=== PATIENT | female | born 1975 | race Caucasian/White ===

== ENCOUNTER → 2020-05-19 07:23 | Outpatient (CLI) | payer BC, SELFPAY ==
[2020-05-19 08:30] LABS: Add Manual Diff / Slide Review NO; Basophils Absolute Auto 100 /uL (0-100); Basophils Percent Auto 2.2 % (0-2); Eosinophils Absolute Auto 200 /uL (0-450); Eosinophils Percent Auto 4.5 % (2-4); Hematocrit 39.8 % (36-46); Hemoglobin 13.5 g/dL (12.0-16.0); Lymphocytes Absolute Auto 1700 /uL (1100-4500); Lymphocytes Percent Auto 31.7 % (25-40); Mean Corpuscular Hemoglobin 30.5 PG (26-34); Mean Corpuscular Volume 89.8 fL (80-100); Monocytes Absolute Auto 600 /uL (0-900); Monocytes Percent Auto 10.7 % (3-14); Neutrophils Absolute Auto 2700 /uL (1500-7000); Neutrophils Percent Auto 50.9 % (50-75); Platelet Count 320 X10^3/uL (150-400); Red Blood Cell Count 4.44 X10^6/uL (4.0-5.2); Red Cell Distribution Width 12.9 % (11.6-14.8); White Blood Cell Count 5.2 X10^3/uL (4.5-11.0)
[2020-05-19 08:55] LABS: Alanine Aminotransferase 19 IU/L (<35); Albumin 4.2 g/dL (3.5-5.0); Albumin Globulin Ratio 1.4 (1.0-2.8); Alkaline Phosphatase 45 U/L (38-126); Aspartate Aminotransferase 29 IU/L (14-36); BUN Creatinine Ratio 16.1 (6-22); Bilirubin Total 0.4 mg/dL (0.2-1.3); Blood Urea Nitrogen 14 mg/dL (7-17); Calcium 9.3 mg/dL (8.4-10.2); Carbon Dioxide 28 mmol/L (22-32); Chloride 102 mmol/L (98-107); Cholesterol 197 mg/dL (140-199); Estimated Glomerular Filt Rate > 60.0 mL/min (>60); Glucose 90 mg/dL (70-100); HDL Cholesterol 64 mg/dL (40-60); HEMOLYSIS < 15 (0-50); LDL Cholesterol Calculated 121 mg/dL (<100); Potassium 4.6 mmol/L (3.4-5.1); Sodium 135 mmol/L (137-145); Total Protein 7.2 g/dL (6.3-8.2); Triglycerides 62 mg/dL (35-150)
[2020-05-19 09:15] LABS: Vitamin D 25 Hydroxy (D3) 63.5 ng/mL (30.0-100.0)
[2020-05-20 08:36] LABS: SARS CoV19 IgG Negative (Negative)
== END ==
PROVIDERS: PCP Registered Nurse Diabetes Educator; Referring Provider Registered Nurse Diabetes Educator; Visit Provider Registered Nurse Diabetes Educator
DX: Z13.1 Encounter for screening for diabetes mellitus (principal); Z13.220 Encounter for screening for lipoid disorders; E55.9 Vitamin D deficiency, unspecified; Z87.898 Personal history of other specified conditions
CPT/HCPCS: 36415; 80053; 80061; 82306; 84443; 85025; 86769

== ENCOUNTER → 2021-02-27 09:16 | Outpatient (CLI) | payer BC, SELFPAY ==
[2021-02-27 09:44] LABS: Hematocrit 40.4 % (36-46); Hemoglobin 13.8 g/dL (12.0-16.0); Mean Corpuscular HGB Conc 34.2 % (30-36); Mean Corpuscular Hemoglobin 30.7 PG (26-34); Mean Corpuscular Volume 89.6 fL (80-100); Platelet Count 356 X10^3/uL (150-400); Red Blood Cell Count 4.51 X10^6/uL (4.0-5.2); Red Cell Distribution Width 13.1 % (11.6-14.8); White Blood Cell Count 4.5 X10^3/uL (4.5-11.0)
[2021-02-27 10:21] LABS: Alanine Aminotransferase 21 IU/L (<35); Albumin 4.4 g/dL (3.5-5.0); Albumin Globulin Ratio 1.3 (1.0-2.8); Alkaline Phosphatase 48 U/L (38-126); Aspartate Aminotransferase 31 IU/L (14-36); BUN Creatinine Ratio 10.4 (6-22); Bilirubin Total 0.4 mg/dL (0.2-1.3); Blood Urea Nitrogen 10 mg/dL (7-17); Calcium 9.7 mg/dL (8.4-10.2); Carbon Dioxide 32 mmol/L (22-32); Chloride 102 mmol/L (98-107); Cholesterol 237 mg/dL (140-199); Estimated Glomerular Filt Rate > 60.0 mL/min (>60); Globulin 3.5 g/dL (1.7-4.1); Glucose 101 mg/dL (70-100); HDL Cholesterol 78 mg/dL (40-60); HEMOLYSIS < 15 (0-50); LDL Cholesterol Calculated 145 mg/dL (<100); Potassium 4.5 mmol/L (3.4-5.1); Sodium 139 mmol/L (137-145); Total Protein 7.9 g/dL (6.3-8.2); Triglycerides 68 mg/dL (35-150)
[2021-02-27 10:57] LABS: Vitamin D 25 Hydroxy (D3) 68.3 ng/mL (30.0-100.0)
[2021-02-27 11:31] LABS: TSH w/ Reflex to FT4 0.43 uIU/mL (0.47-4.68)
[2021-02-27 12:00] LABS: Free T4, Direct Thyroxine 1.46 ng/dL (0.78-2.19)
== END ==
PROVIDERS: PCP Registered Nurse Diabetes Educator; Referring Provider Registered Nurse Diabetes Educator; Visit Provider Registered Nurse Diabetes Educator
DX: E03.9 Hypothyroidism, unspecified (principal); E55.9 Vitamin D deficiency, unspecified; E78.00 Pure hypercholesterolemia, unspecified
CPT/HCPCS: 36415; 80053; 80061; 82306; 84439; 84443; 85027

== ENCOUNTER → 2021-04-17 10:57 | Outpatient (CLI) | payer BC, SELFPAY ==
--- NOTE | 2021-04-17 | DI.MG.S_ITS ---
BILATERAL DIGITAL SCREENING MAMMOGRAM 3D/2D WITH CAD: 04/17/2021 CLINICAL: Routine screening. Family history of breast cancer. Comparison is made to exams dated: 08/09/2019 mammogram, 08/02/2019 mammogram, and 07/10/2018 mammogram - outside location. The tissue of both breasts is heterogeneously dense. This may lower the sensitivity of mammography. Current study was also evaluated with a Computer Aided Detection (CAD) system. No significant masses, calcifications, or other findings are seen in either breast. There has been no significant interval change. IMPRESSION: NEGATIVE There is no mammographic evidence of malignancy. A 1 year screening mammogram is recommended. This exam was interpreted at Station ID: [id number]. NOTE: For mammograms, a report in lay terms will be sent to the patient. Approximately 15% of breast malignancies will not be visualized mammographically. In the management of a palpable breast mass, a negative mammogram must not discourage biopsy of a clinically suspicious lesion. Electronically Signed By: Jesús Castaneda M.D., jr/maricarmen:04/17/2021 12:57:36 letter sent: Normal Exam ACR BI-RADS Category 1: Negative 3341F
[2021-04-17 13:31] LABS: TSH w/ Reflex to FT4 0.84 uIU/mL (0.47-4.68)
== END ==
PROVIDERS: PCP Registered Nurse Diabetes Educator; Referring Provider Registered Nurse Diabetes Educator; Visit Provider Registered Nurse Diabetes Educator
DX: Z12.31 Encounter for screening mammogram for malignant neoplasm of breast (principal); Z80.3 Family history of malignant neoplasm of breast; E03.9 Hypothyroidism, unspecified
CPT/HCPCS: 36415; 77063; 77067; 84443

== ENCOUNTER → 2021-11-27 10:33 | Outpatient (CLI) | payer BC, SELFPAY ==
[2021-11-27 12:57] LABS: TSH w/ Reflex to FT4 0.84 uIU/mL (0.47-4.68)
== END ==
PROVIDERS: PCP Registered Nurse Diabetes Educator; Referring Provider Registered Nurse Diabetes Educator; Visit Provider Registered Nurse Diabetes Educator
DX: E03.9 Hypothyroidism, unspecified (principal)
CPT/HCPCS: 36415; 84443

== ENCOUNTER → 2022-07-25 13:20 | Outpatient (CLI) | payer OTHER, SELFPAY ==
--- NOTE | 2022-07-25 13:22 | DI.MG.S_ITS ---
BILATERAL DIGITAL SCREENING MAMMOGRAM 3D/2D WITH CAD: 07/25/2022 CLINICAL: Routine screening. Family history of breast cancer. Comparison is made to exams dated: 04/17/2021 mammogram - [facility], 08/09/2019 mammogram, 08/09/2019 ultrasound, and 08/02/2019 mammogram - outside location. Both breasts are heterogeneously dense, which may obscure small masses (category c / 51-75% glandular tissue). Current study was also evaluated with a Computer Aided Detection (CAD) system. No significant masses, calcifications, or other findings are seen in either breast. There has been no significant interval change. IMPRESSION: NEGATIVE There is no mammographic evidence of malignancy. A 1 year screening mammogram is recommended. Based on the Tyrer Cuzick model (a risk assessment model) the patient's lifetime risk is 14.2% and her 10 year risk is 2.6%. According to the ACR, ACS, and NCCN guidelines, an annual breast MRI exam along with mammogram is recommended if the patient's lifetime risk is 20% or greater. This exam was interpreted at Station ID: [id number]. NOTE: For mammograms, a report in lay terms will be sent to the patient. Approximately 15% of breast malignancies will not be visualized mammographically. In the management of a palpable breast mass, a negative mammogram must not discourage biopsy of a clinically suspicious lesion. Electronically Signed By: Jesús Castaneda M.D., jr/maricarmen:07/25/2022 14:25:38 letter sent: Normal Exam ACR BI-RADS Category 1: Negative 3341F
== END ==
PROVIDERS: PCP Registered Nurse Diabetes Educator; Referring Provider Registered Nurse Diabetes Educator; Visit Provider Registered Nurse Diabetes Educator
DX: Z12.31 Encounter for screening mammogram for malignant neoplasm of breast (principal); Z80.3 Family history of malignant neoplasm of breast
CPT/HCPCS: 77063; 77067

== ENCOUNTER → 2023-01-20 08:45 | Outpatient (CLI) | payer OTHER, SELFPAY ==
[2023-01-20 09:49] LABS: Hematocrit 41.2 % (36-46); Hemoglobin 13.7 g/dL (12.0-16.0); Mean Corpuscular HGB Conc 33.3 % (30-36); Mean Corpuscular Hemoglobin 29.6 PG (26-34); Mean Corpuscular Volume 88.8 fL (80-100); Platelet Count 329 X10^3/uL (150-400); Red Blood Cell Count 4.63 X10^6/uL (4.0-5.2); Red Cell Distribution Width 13.4 % (11.6-14.8)
[2023-01-20 10:21] LABS: Hemoglobin A1C% w Est Avg Glu 5.2 % (4.0-6.0)
[2023-01-20 10:29] LABS: Alanine Aminotransferase 31 IU/L (<35); Albumin 4.6 g/dL (3.5-5.0); Albumin Globulin Ratio 1.4 (1.0-2.8); Alkaline Phosphatase 50 U/L (38-126); Aspartate Aminotransferase 31 IU/L (14-36); BUN Creatinine Ratio 13.1 (6-22); Bilirubin Total 0.5 mg/dL (0.2-1.3); Blood Urea Nitrogen 11 mg/dL (7-17); Calcium 9.6 mg/dL (8.4-10.2); Carbon Dioxide 33 mmol/L (22-32); Chloride 97 mmol/L (98-107); Cholesterol 232 mg/dL (140-199); Estimated Glomerular Filt Rate > 60 mL/min (>60); Globulin 3.2 g/dL (1.7-4.1); Glucose 93 mg/dL (70-100); HDL Cholesterol 81 mg/dL (40-60); HEMOLYSIS < 15 (0-50); LDL Cholesterol Calculated 136 mg/dL (<100); Potassium 4.5 mmol/L (3.4-5.1); Sodium 136 mmol/L (137-145); Total Protein 7.8 g/dL (6.3-8.2); Triglycerides 73 mg/dL (35-150)
[2023-01-20 10:43] LABS: Free T4, Direct Thyroxine 1.48 ng/dL (0.78-2.19)
[2023-01-20 10:57] LABS: Thyroid Stimulating Hormone 0.505 uIU/mL (0.47-4.68)
[2023-01-21 16:51] LABS: Vitamin D 25 Hydroxy (D3) 49.1 ng/mL (30.0-100.0)
== END ==
PROVIDERS: PCP Registered Nurse Diabetes Educator; Referring Provider Registered Nurse Diabetes Educator; Visit Provider Registered Nurse Diabetes Educator
DX: E03.9 Hypothyroidism, unspecified (principal); R73.01 Impaired fasting glucose; Z13.1 Encounter for screening for diabetes mellitus; Z13.220 Encounter for screening for lipoid disorders; Z79.899 Other long term (current) drug therapy; E55.9 Vitamin D deficiency, unspecified
CPT/HCPCS: 36415; 80053; 80061; 82306; 83036; 84439; 84443; 85027

== ENCOUNTER → 2023-04-07 12:20 | Outpatient (CLI) | payer OTHER, SELFPAY ==
[2023-04-09 07:15] LABS: Insulin Level Total 4.4 uIU/mL (2.6-24.9)
== END ==
PROVIDERS: PCP Registered Nurse Diabetes Educator; Referring Provider Registered Nurse Diabetes Educator; Visit Provider Registered Nurse Diabetes Educator
DX: R73.01 Impaired fasting glucose (principal)
CPT/HCPCS: 36415; 83525

== ENCOUNTER → 2023-06-03 07:43 | Outpatient (CLI) | payer OTHER, SELFPAY ==
[2023-06-03 10:39] LABS: Estradiol, Total 37.2 pg/mL
[2023-06-03 18:38] LABS: Testosterone 25.8 ng/dL (5.71-77.0)
== END ==
PROVIDERS: PCP Registered Nurse Diabetes Educator; Referring Provider Urology; Visit Provider Urology
DX: N95.1 Menopausal and female climacteric states (principal)
CPT/HCPCS: 36415; 82670; 84403

== ENCOUNTER → 2023-08-25 08:09 | Outpatient (CLI) | payer OTHER, SELFPAY ==
--- NOTE | 2023-08-25 | DI.MG.S_ITS ---
BILATERAL DIGITAL SCREENING MAMMOGRAM 3D/2D WITH CAD: 08/25/2023 CLINICAL: Routine screening. Family history of breast cancer. Comparison is made to exams dated: 07/25/2022 mammogram, 04/17/2021 mammogram - [facility], and 08/02/2019 mammogram - outside location. Both breasts are heterogeneously dense, which may obscure small masses (category c / 51-75% glandular tissue). Current study was also evaluated with a Computer Aided Detection (CAD) system. No significant masses, calcifications, or other findings are seen in either breast. There has been no significant interval change. IMPRESSION: NEGATIVE There is no mammographic evidence of malignancy. A 1 year screening mammogram is recommended. Based on the Tyrer Cuzick model (a risk assessment model) the patient's lifetime risk is 14.2% and her 10 year risk is 2.8%. According to the ACR, ACS, and NCCN guidelines, an annual breast MRI exam along with mammogram is recommended if the patient's lifetime risk is 20% or greater. This exam was interpreted at Station ID: [id number]. NOTE: For mammograms, a report in lay terms will be sent to the patient. Approximately 15% of breast malignancies will not be visualized mammographically. In the management of a palpable breast mass, a negative mammogram must not discourage biopsy of a clinically suspicious lesion. Electronically Signed By: Norris andujar/maricarmen:08/25/2023 18:28:35 letter sent: Normal Exam ACR BI-RADS Category 1: Negative 3341F
[2023-08-25 09:17] LABS: Add Manual Diff / Slide Review NO; Basophils Absolute Auto 200 /uL (0-100); Basophils Percent Auto 3.8 % (0-2); Eosinophils Absolute Auto 200 /uL (0-450); Eosinophils Percent Auto 3.7 % (2-4); Hemoglobin 13.3 g/dL (12.0-16.0); Lymphocytes Absolute Auto 1400 /uL (1100-4500); Lymphocytes Percent Auto 28.6 % (25-40); Mean Corpuscular HGB Conc 34.2 % (30-36); Mean Corpuscular Hemoglobin 30.7 PG (26-34); Mean Corpuscular Volume 89.8 fL (80-100); Monocytes Absolute Auto 400 /uL (0-900); Monocytes Percent Auto 8.9 % (3-14); Neutrophils Absolute Auto 2700 /uL (1500-7000); Platelet Count 308 X10^3/uL (150-400); Red Blood Cell Count 4.34 X10^6/uL (4.0-5.2); Red Cell Distribution Width 13.4 % (11.6-14.8)
[2023-08-25 09:24] LABS: Hemoglobin A1C% w Est Avg Glu 5.5 % (4.0-6.0)
[2023-08-25 09:28] LABS: Alanine Aminotransferase 27 IU/L (<35); Albumin 4.5 g/dL (3.5-5.0); Albumin Globulin Ratio 1.4 (1.0-2.8); Alkaline Phosphatase 40 U/L (38-126); Aspartate Aminotransferase 30 IU/L (14-36); Bilirubin Total 0.4 mg/dL (0.2-1.3); Blood Urea Nitrogen 15 mg/dL (7-17); Calcium 9.7 mg/dL (8.4-10.2); Carbon Dioxide 31 mmol/L (22-32); Chloride 100 mmol/L (98-107); Cholesterol 236 mg/dL (140-199); Estimated Glomerular Filt Rate > 60 mL/min (>60); Globulin 3.3 g/dL (1.7-4.1); Glucose 95 mg/dL (70-100); HDL Cholesterol 83 mg/dL (40-60); HEMOLYSIS < 15 (0-50); LDL Cholesterol Calculated 143 mg/dL (<100); Potassium 4.1 mmol/L (3.4-5.1); Sodium 136 mmol/L (137-145); Total Protein 7.8 g/dL (6.3-8.2); Triglycerides 50 mg/dL (35-150)
[2023-08-25 09:31] LABS: High Sensitivity CRP - Cardiac 0.5 mg/L (1.0-3.0)
[2023-08-25 09:44] LABS: Prolactin 11.2 ng/mL (3.0-18.6)
[2023-08-25 09:48] LABS: Follicle Stimulating Hormone 4.67 mIU/mL
[2023-08-25 09:49] LABS: Free T3, Triiodothyronine Free 3.07 pg/mL (2.77-5.27); Free T4, Direct Thyroxine 1.25 ng/dL (0.78-2.19); T4 Total Thyroxine 8.28 ug/dL (5.5-11.0)
[2023-08-25 10:02] LABS: Ferritin 47 ng/mL (6-137); Thyroid Stimulating Hormone 2.91 uIU/mL (0.47-4.68)
[2023-08-25 10:05] LABS: Vitamin D 25 Hydroxy (D3) 81.3 ng/mL (30.0-100.0)
[2023-08-26 07:12] LABS: Sex Hormone Binding Globulin 73.5 nmol/L (24.6-122.0); Thyroid Peroxidase Antibodies 158 IU/mL (0-34); Triiodothyronine T3 Total 68 ng/dL (71-180)
[2023-08-27 15:58] LABS: Insulin Level Total 4.9 uIU/mL (2.6-24.9)
[2023-09-04 17:00] LABS: Vitamin A 55.1 ug/dL (20.1-62.0)
[2023-09-11 12:12] LABS: Triiodothyronine T3 Reverse 15.2
== END ==
PROVIDERS: Obstetrics & Gynecology Gynecology; PCP Registered Nurse Diabetes Educator; Referring Provider Registered Nurse Diabetes Educator; Visit Provider Registered Nurse Diabetes Educator
DX: Z12.31 Encounter for screening mammogram for malignant neoplasm of breast (principal); Z80.3 Family history of malignant neoplasm of breast; E06.3 Autoimmune thyroiditis; N95.9 Unspecified menopausal and perimenopausal disorder; K59.00 Constipation, unspecified; R73.02 Impaired glucose tolerance (oral)
CPT/HCPCS: 36415; 77063; 77067; 80053; 80061; 82306; 82728; 83001; 83036; 83525; 84146; 84270; 84436; 84439; 84443; 84480; 84481; 84482; 84590; 85025; 86140; 86376

== ENCOUNTER → 2023-09-01 09:49 | Outpatient (CLI) | payer SELFPAY | PROVIDERS: PCP Registered Nurse Diabetes Educator; Referring Provider Registered Nurse Diabetes Educator; Visit Provider Registered Nurse Diabetes Educator | DX: Z13.828 Encounter for screening for other musculoskeletal disorder (principal) ==

== ENCOUNTER → 2023-12-29 10:16 | Outpatient (CLI) | payer OTHER, SELFPAY ==
[2023-12-29 11:18] LABS: Hemoglobin A1C% w Est Avg Glu 5.2 % (4.0-6.0)
[2023-12-29 11:54] LABS: Free T3, Triiodothyronine Free 2.89 pg/mL (2.77-5.27); Free T4, Direct Thyroxine 1.04 ng/dL (0.78-2.19); T4 Total Thyroxine 8.02 ug/dL (5.5-11.0)
[2023-12-29 12:07] LABS: Thyroid Stimulating Hormone 4.92 uIU/mL (0.47-4.68)
[2023-12-29 12:11] LABS: Testosterone 66.7 ng/dL (5.71-77.0)
[2023-12-29 12:25] LABS: Estradiol, Total 141.2 pg/mL
[2023-12-30 08:53] LABS: Apolipoprotein B 98 mg/dL (<90); Sex Hormone Binding Globulin 61.6 nmol/L (24.6-122.0); Thyroid Peroxidase Antibodies 154 IU/mL (0-34); Triiodothyronine T3 Total 56 ng/dL (71-180)
[2023-12-31 05:21] LABS: Insulin Level Total 5.2 uIU/mL (2.6-24.9)
[2024-01-01 22:41] LABS: Anti Thyroglobulin Antibody <1.0 IU/mL (0.0-0.9)
[2024-01-06 14:15] LABS: Testosterone, Free 3.4 pg/mL (0.0-4.2)
== END ==
LOC: LAB 10:20
PROVIDERS: PCP Registered Nurse Diabetes Educator; Referring Provider Obstetrics & Gynecology Gynecology; Visit Provider Obstetrics & Gynecology Gynecology
DX: N95.9 Unspecified menopausal and perimenopausal disorder (principal); R73.02 Impaired glucose tolerance (oral); E06.3 Autoimmune thyroiditis; K59.00 Constipation, unspecified
CPT/HCPCS: 36415; 82172; 82670; 82679; 83036; 83525; 84144; 84270; 84402; 84403; 84436; 84439; 84443; 84480; 84481; 84482; 86376; 86800

== ENCOUNTER → 2024-03-22 12:01 | Outpatient (CLI) | payer OTHER, SELFPAY ==
[2024-03-22 13:13] LABS: High Sensitivity CRP - Cardiac 0.6 mg/L (1.0-3.0)
[2024-03-23 08:28] LABS: Apolipoprotein A-1 166 mg/dL (116-209); Apolipoprotein B 80 mg/dL (<90); Apolipoprotein B/A1 Ratio 0.5 ratio (0.0-0.6)
== END ==
PROVIDERS: PCP Registered Nurse Diabetes Educator; Referring Provider Nurse Practitioner; Visit Provider Nurse Practitioner
DX: E78.2 Mixed hyperlipidemia (principal); Z79.890 Hormone replacement therapy; I10 Essential (primary) hypertension; E66.3 Overweight; Z82.49 Family history of ischemic heart disease and other diseases of the circulatory system; R53.83 Other fatigue; R73.09 Other abnormal glucose
CPT/HCPCS: 36415; 80061; 82172; 83090; 83525; 83704; 83735; 86140

== ENCOUNTER → 2024-11-18 08:15 | Outpatient (CLI) | payer OTHER, SELFPAY ==
--- NOTE | 2024-11-18 08:16 | DI.MG.S_ITS ---
BILATERAL DIGITAL SCREENING MAMMOGRAM 3D/2D WITH CAD: 11/18/2024 CLINICAL: Routine screening. Family history of breast cancer. Comparison is made to exams dated: 08/25/2023 mammogram, 07/25/2022 mammogram, 04/17/2021 mammogram - [facility], and 08/02/2019 mammogram - outside location. The breasts are heterogeneously dense, which may obscure small masses (category c / 51-75% glandular tissue). Current study was also evaluated with a Computer Aided Detection (CAD) system. No significant masses, calcifications, or other findings are seen in either breast. There has been no significant interval change. IMPRESSION: NEGATIVE There is no mammographic evidence of malignancy. A 1 year screening mammogram is recommended. Based on Tyrer-Cuzick model (a risk assessment model), the patient's lifetime risk is 20.8% and her 10 year risk is 4.8%. If a patient has an elevated risk, a more comprehensive evaluation should be considered and/or a referral to a genetic counselor. The [employer], [employer], and NCCN Guidelines advise the consideration of Breast MRI as an adjunct to screening mammography in patients whose Lifetime risk to develop breast cancer is 20% or higher. This exam was interpreted at Station ID: [id number]. NOTE: For mammograms, a report in lay terms will be sent to the patient. Approximately 15% of breast malignancies will not be visualized mammographically. In the management of a palpable breast mass, a negative mammogram must not discourage biopsy of a clinically suspicious lesion. Electronically Signed By: Norris andujar/maricarmen:11/18/2024 15:46:50 letter sent: Normal Exam ACR BI-RADS Category 1: Negative
== END ==
PROVIDERS: PCP Registered Nurse Diabetes Educator; Referring Provider Registered Nurse Diabetes Educator; Visit Provider Registered Nurse Diabetes Educator
DX: Z12.31 Encounter for screening mammogram for malignant neoplasm of breast (principal); Z80.3 Family history of malignant neoplasm of breast; R92.333 Mammographic heterogeneous density, bilateral breasts
CPT/HCPCS: 77063; 77067